=== PATIENT | male | born 1965 ===

== ENCOUNTER 2017-07-29 08:48 | Emergency (ER) | payer OTHER ==
[~2017-07-29 08:48] MED LIST: Naloxone 0.4 mg/ml Inj (Adult) ONE
[2017-07-29] MEDS ORDERED: Sodium Chloride 0.9% 1,000 ML IV STA ×2 (09:02→20:48)
[2017-07-29] MEDS ORDERED: Naloxone 0.4 mg/ml Inj (Adult) IVP STA (09:26)
[2017-07-29 09:36] LABS: BASO # 0.1 K/uL (0.0-0.2); BASO % 0.5 % (0.0-2.0); EOS # 0.1 K/uL (0.0-0.7); EOS % 0.8 % (0.0-4.0); HEMOGLOBIN 10.6 g/dL (12.0-18.0); LYMPH # 3.1 K/uL (1.0-4.3); LYMPH % 17.8 % (20.0-40.0); MEAN CELL VOLUME 74.5 fl (80.0-94.0); MEAN CORPUSCULAR HEMOGLOBIN 23.5 pg (27.0-31.0); MEAN CORPUSCULAR HGB CONC 31.5 g/dL (33.0-37.0); MONO # 1.8 K/uL (0.0-0.8); MONO % 10.1 % (0.0-10.0); NEUT # 12.3 K/uL (1.8-7.0); NEUT % 70.8 % (50.0-75.0); NRBC % 0.2 % (0.0-0.0); RBC 4.52 Mil/uL (4.40-5.90); RED CELL DISTRIBUTION WIDTH 17.5 % (11.5-14.5); WHITE BLOOD COUNT 17.4 K/uL (4.8-10.8)
[2017-07-29 09:53] LABS: ACETAMINOPHEN < 10.0 ug/ml (10.0-30.0); SALICYLATE < 1.0 mg/dl
[2017-07-29 09:58] LABS: ALB/GLOB RATIO 1.2 (1.0-2.1); ALBUMIN 4.7 g/dL (3.5-5.0); ALT/SGPT 256 U/L (21-72); BLOOD UREA NITROGEN 15 mg/dl (9-20); CALCIUM 8.7 mg/dL (8.4-10.2); GFR AFRICAN-AMERICAN > 60; GFR NON-AFRICAN AMERICAN > 60
[2017-07-29 10:03] LABS: AST/SGOT 915 U/L (17-59)
[2017-07-29 10:07] LABS: BARBITURATES, UR NEGATIVE (NEGATIVE); PHENCYCLIDINE, UR NEGATIVE (NEGATIVE); SQUAMOUS EPITHIAL 1 /hpf (0-5); URINE BILIRUBIN NEGATIVE (NEGATIVE); URINE BLOOD SMALL (NEGATIVE); URINE CLARITY CLOUDY (Clear); URINE COLOR YELLOW (YELLOW); URINE GLUCOSE (UA) NEG (Normal); URINE LEUKOCYTE ESTERASE NEG Leu/uL (Negative); URINE NITRATE NEGATIVE (NEGATIVE); URINE PROTEIN 100 mg/dL (NEGATIVE); URINE UROBILINOGEN 0.2-1.0 mg/dL (0.2-1.0)
[2017-07-29 10:08] LABS: BENZODIAZEPINES, UR POSITIVE (NEGATIVE); OPIATES, UR POSITIVE (NEGATIVE)
--- NOTE | 2017-07-29 12:35 | ED PDOC ---
HPI: Psych/Substance Abuse Time Seen by Provider: 07/29/17 08:56 Chief Complaint (Nursing): Substance Abuse History Per: EMS (patient found obtunded in the street with witnesses reporting abnormal behavior prior to him becoming obtunded. On arrival to the ER patient was barely breathing and unsreponsive to deep pain. His pupils were noted to be constricted. He responsded to Narcan 0.4mg IvP.) Past Medical History Reviewed: Historical Data, Nursing Documentation, Vital Signs Vital Signs: Last Vital Signs Temp Pulse 115 H 07/29/17 08:57 Resp 12 07/29/17 08:57 BP 162/89 H 07/29/17 08:57 Pulse Ox 100 07/29/17 08:57 - Medical History PMH: Asthma Denies: Diabetes, Hepatitis, HIV, HTN, Chronic Kidney Disease, Seizures, Sexually Transmitted Disease - Family History Family History: States: Unknown Family Hx - Immunization History Hx Tetanus Toxoid Vaccination: No Hx Influenza Vaccination: No Hx Pneumococcal Vaccination: No - Home Medications Home Medications: Ambulatory Orders Medication Instructions Recorded Sertraline [Zoloft] 50 mg PO DAILY #30 tab 07/27/17 traZODone [Desyrel] 50 mg PO HS PRN #30 tab 07/27/17 - Allergies Allergies/Adverse Reactions: Allergies Allergy/AdvReac Type Severity Reaction Status Date / Time No Known Allergies Allergy Verified 07/29/17 08:57 Review of Systems Review Of Systems: ROS cannot be obtained secondary to pt's inabilty to answer questions. Physical Exam - Reviewed Nursing Documentation Reviewed: Yes Vital Signs Reviewed: Yes - Physical Exam Appears: Positive for: No Acute Distress Head Exam: Positive for: ATRAUMATIC, NORMAL INSPECTION Eye Exam: Negative for: PERRL (1-2 mm and non-reactive, equal) Neck: Positive for: Normal Cardiovascular/Chest: Positive for: Regular Rate, Rhythm (tachycardic) - Laboratory Results Result Diagrams: 07/29/17 09:22 07/29/17 09:22 - ECG O2 Sat by Pulse Oximetry: 100 - Critical Care Total Time (In Min): 30 Medical Decision Making Medical Decision Making: patient monitored throughout stay. no further events. he is easily awakened. Will discharge. patient admits to using crack-cocaine and heroine. Disposition - Clinical Impression Clinical Impression: Overdose - Patient ED Disposition Is Patient to be Admitted: No Doctor Will See Patient In The: Office Counseled Patient/Family Regarding: Diagnosis, Need For Followup - Disposition Referrals: [facility] [Outside] Disposition: Routine/Home Disposition Time: 16:44 Condition: IMPROVED Instructions: Adult Overdose (ED) Forms: [employer] (Kazakh) - POA Present On Arrival: None
--- NOTE | 2017-07-29 16:22 | CARD ---
APPROVED REPORT EKG Measurement Heart [id number] HI 144P43 [id number] <Conclusion> Sinus tachycardia Consider old inferior infarct Abnormal ECG
[2017-07-29] MEDS ORDERED: Albuterol-Ipratrop 3 mg / 0.5 (3 ml) UD INH STA (17:52)
[2017-07-29] MEDS ORDERED: Albuterol-Ipratrop 3 mg / 0.5 (3 ml) UD ONE (18:02)
--- NOTE | 2017-07-29 18:38 | RAD ---
HISTORY: hypoxia COMPARISON: No prior. FINDINGS: LUNGS: No active pulmonary disease. PLEURA: No significant pleural effusion identified, no pneumothorax apparent. CARDIOVASCULAR: Normal. OSSEOUS STRUCTURES: No significant abnormalities. VISUALIZED UPPER ABDOMEN: Normal. OTHER FINDINGS: None. IMPRESSION: No active disease.
--- NOTE | 2017-07-29 19:52 | US ---
EXAM: US Abdomen Complete CLINICAL HISTORY: 52 years old, male; Pain; Abdominal pain; Epigastric TECHNIQUE: Real-time ultrasound of the abdomen (complete) with image documentation. COMPARISON: No relevant prior studies available. FINDINGS: Liver: Enlarged, 18.6 cm. Fatty infiltration. No mass. No intrahepatic ductal dilatation. Gallbladder: No gallstones. Sludge. No definite wall thickening. No pericholecystic fluid. No sonographic Mello's sign. Common bile duct: No dilatation. No stones. Pancreas: Obscured by overlying bowel gas. Kidneys: Normal echogenicity. No hydronephrosis. Spleen: No splenomegaly. Aorta: Obscured by overlying bowel gas. Inferior vena cava: Unremarkable. Free fluid: No significant free fluid. IMPRESSION: 1. Gallbladder sludge. 2. Incidental/non-acute findings are described above.
[2017-07-29 20:46] LABS: INR 1.1 (0.9-1.2); PARTIAL THROMBOPLASTIN TIME 29.5 Seconds (25.6-37.1); PROTHROMBIN TIME 11.7 Seconds (9.8-13.1)
--- NOTE | 2017-07-29 20:57 | ED PDOC ---
- Laboratory Results Result Diagrams: 07/29/17 09:22 07/29/17 09:22 - ECG O2 Sat by Pulse Oximetry: 100 - Progress ED Course And Treament: Pt was discharged during previous shift. Called to bedside by RN who reports on attempt to discharge him, pt reported continuing to feel sick and unable to get up. Pt tachycardic and diaphoretic. Labs reviewed and demonstrated elevated LFTs and leukocytosis. Also UDS +cocaine and opiates. Addn'l IV hydration given and US ordered. EXAM: US Abdomen Complete CLINICAL HISTORY: 52 years old, male; Pain; Abdominal pain; Epigastric TECHNIQUE: Real-time ultrasound of the abdomen (complete) with image documentation. COMPARISON: No relevant prior studies available. FINDINGS: Liver: Enlarged, 18.6 cm. Fatty infiltration. No mass. No intrahepatic ductal dilatation. Gallbladder: No gallstones. Sludge. No definite wall thickening. No pericholecystic fluid. No sonographic Mello's sign. Common bile duct: No dilatation. No stones. Pancreas: Obscured by overlying bowel gas. Kidneys: Normal echogenicity. No hydronephrosis. Spleen: No splenomegaly. Aorta: Obscured by overlying bowel gas. Inferior vena cava: Unremarkable. Free fluid: No significant free fluid. IMPRESSION: 1. Gallbladder sludge. 2. Incidental/non-acute findings are described above. Thank you for allowing us to participate in the care of your patient. Dictated and Authenticated by: Tom Wiggins MD 07/29/2017 7:52 PM Eastern Time ([place] & [place]) On reevaluation 2300 pt tolerating PO. Vitals stabilized. Feels better. DW pt dangers of drug use/overdose and resources given. Stable for discharge. Disposition - Clinical Impression Clinical Impression: Overdose, Polysubstance abuse - POA Present On Arrival: Falls Or Trauma - Disposition Referrals: [facility] [Outside] [facility] [Outside] Disposition: Routine/Home Disposition Time: 23:00 Condition: IMPROVED Instructions: Cocaine Abuse (ED), Narcotic Abuse (ED), Polysubstance Abuse (ED) , Opioid Overdose (ED) Print Language: HUNGARIAN
[2017-07-29 22:33] VITALS: BP 123/69; PULSE 95; RESP 18; TEMP 98.5
[2017-07-30 18:03] VITALS: O2SAT 100
== END 2017-07-29 23:38 | disposition home or self-care (01) ==
LOC: H.ER 08:48
DX: F19.10 Other psychoactive substance abuse, uncomplicated (principal); J45.909 Unspecified asthma, uncomplicated
CPT/HCPCS: 71045; 76700; 80053; 80320; 80324; 80329; 80345; 80346; 80349; 80353; 80358; 80361; 81003; 83605; 83992; 85025; 85610; 85730; 87040; 87086; 93005; 96361; 96374; 99283; J2310; J7040

== ENCOUNTER 2017-07-30 08:09 | Emergency (ER) | payer OTHER ==
[2017-07-30 08:23] VITALS: PULSE 86; TEMP 97.9; O2SAT 99
[2017-07-30] MEDS ORDERED: Sodium Chloride 0.9% 1,000 ML IV ONE (08:32)
--- NOTE | 2017-07-30 09:11 | CT ---
PROCEDURE: CT HEAD WITHOUT CONTRAST. HISTORY: faith and vomiting COMPARISON: None available. TECHNIQUE: Axial computed tomography images were obtained through the head/brain without intravenous contrast. Radiation dose: Total exam DLP = 861.89 mGy-cm. This CT exam was performed using one or more of the following dose reduction techniques: Automated exposure control, adjustment of the mA and/or kV according to patient size, and/or use of iterative reconstruction technique. FINDINGS: HEMORRHAGE: No intracranial hemorrhage. BRAIN: No mass effect or edema. No atrophy or chronic microvascular ischemic changes. VENTRICLES: Unremarkable. No hydrocephalus. CALVARIUM: Unremarkable. PARANASAL SINUSES: Unremarkable as visualized. No significant inflammatory changes. MASTOID AIR CELLS: Unremarkable as visualized. No inflammatory changes. OTHER FINDINGS: None. IMPRESSION: Normal CT of the Head. No intracranial mass, hemorrhage or evidence of acute infarct.
[2017-07-30 09:25] LABS: BASO % 0.5 % (0.0-2.0); EOS # 0.1 K/uL (0.0-0.7); EOS % 1.1 % (0.0-4.0); HEMOGLOBIN 8.9 g/dL (12.0-18.0); LYMPH # 1.2 K/uL (1.0-4.3); LYMPH % 13.3 % (20.0-40.0); MEAN CELL VOLUME 72.9 fl (80.0-94.0); MEAN CORPUSCULAR HEMOGLOBIN 23.7 pg (27.0-31.0); MEAN CORPUSCULAR HGB CONC 32.5 g/dL (33.0-37.0); MEAN PLATELET VOLUME 7.8 fl (7.2-11.7); MONO # 1.1 K/uL (0.0-0.8); MONO % 12.3 % (0.0-10.0); NEUT # 6.7 K/uL (1.8-7.0); NEUT % 72.8 % (50.0-75.0); NRBC % 0.1 % (0.0-0.0); RBC 3.74 Mil/uL (4.40-5.90); RED CELL DISTRIBUTION WIDTH 17.4 % (11.5-14.5); WHITE BLOOD COUNT 9.2 K/uL (4.8-10.8)
--- NOTE | 2017-07-30 09:27 | CT ---
PROCEDURE: CT Abdomen and Pelvis without intravenous contrast HISTORY: bl flank pain r/o stone COMPARISON: None. TECHNIQUE: Without contrast.. Contrast Dose: 0 Radiation dose: Total exam DLP = 1032.53 mGy-cm. This CT exam was performed using one or more of the following dose reduction techniques: Automated exposure control, adjustment of the mA and/or kV according to patient size, and/or use of iterative reconstruction technique. FINDINGS: LOWER THORAX: Unremarkable. LIVER: Normal size, contour. Diffusely diminished attenuation consistent with fatty infiltration. No mass. No intrahepatic biliary dilatation. GALLBLADDER AND BILE DUCTS: Unremarkable. PANCREAS: Unremarkable. No gross lesion or ductal dilatation. SPLEEN: Unremarkable. ADRENALS: Unremarkable. No mass. KIDNEYS AND URETERS: 3 mm nonobstructing left upper pole renal calculus. No other renal calculus. No hydronephrosis. No renal mass. No hydroureter or ureteral calculus. No perinephric fluid. VASCULATURE: Unremarkable. No aortic aneurysm. BOWEL: Scattered colonic diverticulae. No evidence of diverticulitis. No bowel obstruction. No significant fecal retention. APPENDIX: Unremarkable. Normal appendix. PERITONEUM: Unremarkable. No free fluid. No free air. LYMPH NODES: Unremarkable. No enlarged lymph nodes. BLADDER: Unremarkable. REPRODUCTIVE: Normal prostate BONES: No acute fracture. OTHER FINDINGS: None. IMPRESSION: Nonobstructing 3 mm left upper pole renal calculus. No evidence of urinary tract obstruction. Scattered colonic diverticulae. Fatty infiltration of the liver. Otherwise unremarkable examination.
[2017-07-30 09:42] LABS: ACETAMINOPHEN < 10.0 ug/ml (10.0-30.0); SALICYLATE < 1.0 mg/dl
[2017-07-30 09:43] LABS: ALB/GLOB RATIO 1.2 (1.0-2.1); ALBUMIN 3.8 g/dL (3.5-5.0); ALT/SGPT 183 U/L (21-72); AMYLASE 179 U/L (30-110); AST/SGOT 450 U/L (17-59); BLOOD UREA NITROGEN 16 mg/dl (9-20); CALCIUM 8.6 mg/dL (8.4-10.2); GFR AFRICAN-AMERICAN > 60; GFR NON-AFRICAN AMERICAN > 60; LIPASE 87 U/L (23-300)
--- NOTE | 2017-07-30 09:50 | ED PDOC ---
HPI:Nausea, Vomiting, Diarrhea Time Seen by Provider: 07/30/17 08:22 Chief Complaint (Nursing): GI Problem History Per: Patient History/Exam Limitations: no limitations Onset/Duration Of Symptoms: Days (1), Gradual Current Symptoms Are (Timing): Still Present Severity: Mild Associated Symptoms: denies: Fever, Chills, Nausea, Vomiting, Constipation, Urinary Symptoms Exacerbating Factors: None Alleviating Factors: None Additional History Per: Patient Additional Complaint(s): c/o headache and vomiting x 2 since this a.m. Pt states he noticed blood streaks in vomitus. pt admits to using alcohol, cocaine and heroin pt d/c here yesterday for overdose d/c from inpt rehab approx 2 days ago. admits to wretching after drinking with trace blood no sx now. Past Medical History Reviewed: Historical Data, Nursing Documentation, Vital Signs Vital Signs: Last Vital Signs Temp 97.9 F 07/30/17 08:21 Pulse 86 07/30/17 08:21 Resp 16 07/30/17 08:21 BP 133/70 07/30/17 08:21 Pulse Ox 99 07/30/17 08:21 - Medical History PMH: Asthma, Depression Denies: Diabetes, Hepatitis, HIV, HTN, Chronic Kidney Disease, Seizures, Sexually Transmitted Disease - Family History Family History: States: Unknown Family Hx - Living Arrangements Living Arrangements: With Family - Social History Current smoker - smoking cessation education provided: Yes Alcohol: > 2 Drinks/Day Drugs: Cocaine, Opiates - Immunization History Hx Tetanus Toxoid Vaccination: No Hx Influenza Vaccination: No Hx Pneumococcal Vaccination: No - Home Medications Home Medications: Ambulatory Orders Medication Instructions Recorded Sertraline [Zoloft] 50 mg PO DAILY #30 tab 07/27/17 traZODone [Desyrel] 50 mg PO HS PRN #30 tab 07/27/17 Pantoprazole Sodium [Protonix] 40 mg PO DAILY #20 ect 07/30/17 - Allergies Allergies/Adverse Reactions: Allergies Allergy/AdvReac Type Severity Reaction Status Date / Time No Known Allergies Allergy Verified 07/30/17 08:20 Review of Systems ROS Statement: Except As Marked, All Systems Reviewed And Found Negative Constitutional: Negative for: Fever, Chills Cardiovascular: Negative for: Chest Pain, Palpitations Respiratory: Negative for: Cough, Shortness of Breath Gastrointestinal: Positive for: Nausea, Vomiting, Abdominal Pain. Negative for : Diarrhea Genitourinary Male: Negative for: Dysuria Skin: Negative for: Rash Neurological: Negative for: Weakness, Numbness Physical Exam - Reviewed Nursing Documentation Reviewed: Yes Vital Signs Reviewed: Yes - Physical Exam Appears: Positive for: Uncomfortable Head Exam: Positive for: ATRAUMATIC, NORMAL INSPECTION, NORMOCEPHALIC Eye Exam: Positive for: Normal appearance, EOMI, PERRL Neck: Positive for: Normal, Painless ROM, Supple Cardiovascular/Chest: Positive for: Regular Rate, Rhythm, Chest Non Tender Respiratory: Positive for: Normal Breath Sounds. Negative for: Decreased Breath Sounds, Accessory Muscle Use, Crackles Pulses-Radial (L): 2+ Pulses-Radial (R): 2+ Gastrointestinal/Abdominal: Positive for: Normal Exam, Bowel Sounds, Soft. Negative for: Tenderness Back: Positive for: Normal Inspection. Negative for: L CVA Tenderness, R CVA Tenderness Extremity: Positive for: Normal ROM. Negative for: Tenderness, Pedal Edema Neurologic/Psych: Positive for: Alert, research quality assurance specialist II-XII, Oriented, Mood/Affect (calm) , Gait (steady). Negative for: Motor/Sensory Deficits, Aphasia, Facial Droop - Laboratory Results Result Diagrams: 07/30/17 09:22 07/30/17 09:22 - ECG ECG: Positive for: Interpreted By Nd ECG Rhythm: Positive for: Normal QRS, Normal ST Segment, Sinus Rhythm (rate of 81). Negative for: ST/T Changes Interpretation Of Abn EKG: no evidence of ischemia O2 Sat by Pulse Oximetry: 99 Pulse Ox Interpretation: Normal - Radiology X-Ray: Interpreted by Me X-Ray Interpretation: No Acute Disease - Progress ED Course And Treament: pt has no sx advise to stop drug and etog advise protonix and close pmd f/u. Re-evaluation Time: 10:00 Condition: Improved Disposition - Clinical Impression Clinical Impression: Gastritis, Alcohol abuse, Polysubstance abuse - Patient ED Disposition Is Patient to be Admitted: No Counseled Patient/Family Regarding: Studies Performed, Diagnosis, Need For Followup, Rx Given - Disposition Referrals: [facility] [Outside] (2 to 3 days) Disposition: Routine/Home Disposition Time: 11:20 Condition: GOOD Prescriptions: Pantoprazole Sodium [Protonix] 40 mg PO DAILY #20 ect Instructions: Gastritis (ED), Alcohol Intoxication (ED), Abuse of Alcohol (ED) , Alcohol Dependence (ED) Forms: [employer] (Swiss)
[2017-07-30 12:47] VITALS: BP 128/72; RESP 18
--- NOTE | 2017-07-30 14:10 | CARD ---
APPROVED REPORT EKG Measurement Heart [id number] ND 142P55 [id number] <Conclusion> Normal sinus rhythm Increased R/S ratio in V1, consider early transition or posterior infarct Abnormal ECG
--- NOTE | 2017-07-30 14:56 | RAD ---
HISTORY: abd pain COMPARISON: 07/29/2017 FINDINGS: LUNGS: No active pulmonary disease. PLEURA: No significant pleural effusion identified, no pneumothorax apparent. CARDIOVASCULAR: Normal. OSSEOUS STRUCTURES: No significant abnormalities. VISUALIZED UPPER ABDOMEN: Normal. OTHER FINDINGS: None. IMPRESSION: No active disease.
== END 2017-07-30 12:40 | disposition home or self-care (01) ==
LOC: H.ER 08:09
DX: F10.10 Alcohol abuse, uncomplicated (principal); K29.70 Gastritis, unspecified, without bleeding; F32.9 Major depressive disorder, single episode, unspecified; F19.10 Other psychoactive substance abuse, uncomplicated
CPT/HCPCS: 70450; 71045; 74176; 80053; 80329; 82150; 83690; 84484; 85025; 93005; 96374; 99283; C9113; J7040

== ENCOUNTER 2018-09-22 22:54 | Emergency (ER) | payer MEDICAID, OTHER ==
[2018-09-22 22:54] VITALS: BMI 29.4
[2018-09-22 22:59] VITALS: O2SAT 99
--- NOTE | 2018-09-23 00:31 | ED PDOC ---
HPI: Psych/Substance Abuse Time Seen by Provider: 09/22/18 23:21 Chief Complaint (Nursing): Medical Clearance Chief Complaint (Provider): clearance History Per: Patient Additional Complaint(s): 53 y/o male here in police custody for medical/psychiatric clearance for incarceration. Patient states he has chest tightness which is consistent with his anxiety. Patient admits to drinking tonight; states his anxiety happens more when he drinks. Denies fever, headache, dizziness, shortness of breath, palpitations, leg pain/swelling, drug use. Patient denies suicidal/homicidal ideations Past Medical History Reviewed: Historical Data, Nursing Documentation, Vital Signs Vital Signs: Last Vital Signs Temp 98.0 F 09/22/18 22:56 Pulse 99 H 09/22/18 22:56 Resp 16 09/22/18 22:56 BP 115/78 09/22/18 22:56 Pulse Ox 99 09/22/18 22:56 - Medical History PMH: Anxiety, Asthma, Depression Denies: HIV, HTN, Chronic Kidney Disease, Seizures, Sexually Transmitted Disease - Surgical History Surgical History: No Surg Hx - Family History Family History: States: Unknown Family Hx - Immunization History Hx Tetanus Toxoid Vaccination: No Hx Influenza Vaccination: No Hx Pneumococcal Vaccination: No - Home Medications Home Medications: Ambulatory Orders Medication Instructions Recorded Albuterol HFA [Ventolin HFA 90 2 puff IH Q4H PRN #1 puff 11/20/17 mcg/actuation (8 g)] Albuterol/Ipratropium [Duoneb 3 6 ml IH Q4H PRN #100 neb 11/20/17 MG/3 Ml-0.5 MG/3 Ml 3 Ml] Famotidine [Pepcid] 20 mg PO DAILY #14 tab 02/19/18 Ondansetron ODT [Zofran ODT] 4 mg PO TID #20 odt 02/19/18 - Allergies Allergies/Adverse Reactions: Allergies Allergy/AdvReac Type Severity Reaction Status Date / Time No Known Allergies Allergy Verified 09/22/18 22:56 Review of Systems ROS Statement: Except As Marked, All Systems Reviewed And Found Negative Psych: Positive for: Anxiety Physical Exam - Reviewed Nursing Documentation Reviewed: Yes Vital Signs Reviewed: Yes - Physical Exam Appears: Positive for: Well, Non-toxic, No Acute Distress Head Exam: Positive for: ATRAUMATIC, NORMAL INSPECTION, NORMOCEPHALIC Skin: Positive for: Normal Color Eye Exam: Positive for: Normal appearance ENT: Positive for: Normal ENT Inspection Cardiovascular/Chest: Positive for: Regular Rate, Rhythm Respiratory: Positive for: Normal Breath Sounds Gastrointestinal/Abdominal: Positive for: Normal Exam Back: Positive for: Normal Inspection Extremity: Positive for: Normal ROM Neurological/Psych: Positive for: Awake, Alert, Oriented (x3) - ECG ECG: Positive for: Viewed By Me (reviewed by ED attending) ECG Rhythm: Positive for: Sinus Rhythm O2 Sat by Pulse Oximetry: 99 - Progress ED Course And Treament: -ekg -crisis eval Patient evaluated by process worker and cleared for discharge as per Dr. Shukla Disposition - Clinical Impression Clinical Impression: Adjustment disorder, Medical clearance for incarceration, Alcohol abuse - Patient ED Disposition Is Patient to be Admitted: No Counseled Patient/Family Regarding: Studies Performed, Diagnosis, Need For Followup - Disposition Disposition: Discharged/Transfer to Law Enforcement Disposition Time: 00:33 Condition: STABLE Additional Instructions: Patient medically and psychiatrically cleared for incarceration Instructions: Abuse of Alcohol (ED), Adjustment Disorder
[2018-09-23 03:04] VITALS: BP 120/76; PULSE 83; RESP 15; TEMP 97.9
--- NOTE | 2018-09-23 09:01 | CARD ---
APPROVED REPORT Date of service: 09/22/2018 EKG Measurement Heart [id number] CT 156P49 [id number] <Conclusion> Normal sinus rhythm Normal ECG
== END 2018-09-23 01:11 ==
LOC: H.ER 22:54
DX: F43.20 Adjustment disorder, unspecified (principal); F10.10 Alcohol abuse, uncomplicated